=== PATIENT | male | born 1950 | race Caucasian/White ===

== ENCOUNTER 2024-12-17 14:43 | Outpatient (CLI) | payer OTHER ==
[~2024-12-17 14:43] MED LIST: Iopamidol 370 76% 100 ML VIAL ONE
== END 2024-12-17 14:44 | disposition home or self-care (01) ==
LOC: CSHCT 14:43
PROVIDERS: ATTEND Nurse Practitioner Family
DX: E78.00 Pure hypercholesterolemia, unspecified (principal); I72.8 Aneurysm of other specified arteries; I71.43 Infrarenal abdominal aortic aneurysm, without rupture; K80.20 Calculus of gallbladder without cholecystitis without obstruction; K57.30 Diverticulosis of large intestine without perforation or abscess without bleeding; N40.0 Benign prostatic hyperplasia without lower urinary tract symptoms; Z92.3 Personal history of irradiation; N32.3 Diverticulum of bladder; N32.89 Other specified disorders of bladder
CPT/HCPCS: 74175; 82565; Q9967